=== PATIENT | female | born 1960 | race Caucasian/White ===

== ENCOUNTER 2023-04-11 18:38 | Emergency (ER) | payer OTHER ==
[~2023-04-11] VITALS: Ht 162.6 cm; Wt 79.4 kg
--- NOTE | 2023-04-11 18:41 | NUR ---
Patient to ER bed 07 to gown for evaluation. Side rails up.
--- NOTE | 2023-04-11 18:42 | NUR ---
Pt brought by self, A&Ox4,pt presents to ER with headache and neck pain after she fell backwards while playing softball, denies KO, denies blood thinners, skin pink and warm, cap refill <3, VSS.
[2023-04-11 18:44] VITALS: BP_SYST 130; PULSE 82; RESP 18; TEMP 98.2; O2SAT 96
--- NOTE | 2023-04-11 18:50 | NUR ---
Dr Alfonso evaluating patient at bedside
[2023-04-11] MEDS ORDERED: methocarbamoL 500 MG TABLET PO ONE (19:00)
[2023-04-11] MEDS ORDERED: KETOROLAC TROMETHAMINE 15 MG VIAL IM ONE (19:00)
--- NOTE | 2023-04-11 19:10 | NUR ---
RECEIVED VERBAL REPORT FROM OUTGOING NURSE LINDA HOOD. RECEIVED PT AWAKE AND ALERT, NO S/S OF DISTRESS NOTED. AT BEDSIDE.
[2023-04-11] MEDS ORDERED: METH-634 PO (19:53)
[2023-04-11] MEDS ORDERED: IBUP-1969 PO (19:53)
[2023-04-11 20:00] VITALS: BP_SYST 127; PULSE 78; RESP 18; O2SAT 96
--- NOTE | 2023-04-11 20:00 | NUR ---
Patient given written and verbal discharge instructions and verbalizes understanding. ER DR NICHOLAS discussed with patient the results and treatment provided. Patient in stable condition. ID arm band removed. IV catheter removed intact and dressing applied, no active bleeding. Rx of MOTRIN AND ROBAXIN given. Patient educated on pain management and to follow up with PMD. Pain Scale 0/10. Opportunity for questions provided and answered. Medication side effect fact sheet provided.
== END 2023-04-11 20:00 | disposition home or self-care (01) ==
LOC: SED 18:38
DX: S13.4XXA Sprain of ligaments of cervical spine, initial encounter (principal); S09.90XA Unspecified injury of head, initial encounter; I10 Essential (primary) hypertension; E78.5 Hyperlipidemia, unspecified; Z88.0 Allergy status to penicillin; Z79.899 Other long term (current) drug therapy; W21.07XA Struck by softball, initial encounter; Y93.64 Activity, baseball; Y92.89 Other specified places as the place of occurrence of the external cause; Y99.8 Other external cause status
CPT/HCPCS: 99283; 96372; J1885